=== PATIENT | female | born 1980 | race Caucasian/White ===

== ENCOUNTER 2021-02-20 23:22 | Emergency (ER) | payer BC ==
[2021-02-20] MEDS ORDERED: DECADRON 10MG INJ. IV ONE (23:44)
[2021-02-20] MEDS ORDERED: HYDROCODONE-ACETAMIN 2.5-108/5 ML SOLUTION PO STA (23:44)
[2021-02-20] MEDS ORDERED: DECADRON 10MG INJ. ONE (23:54)
[2021-02-20] MEDS ORDERED: HYDROCODONE-ACETAMIN 2.5-108/5 ML SOLUTION ONE (23:55)
[2021-02-21 00:19] LABS: Absolute Neutrophil Ct (ANC) 1.08 (1.4-6.9); BASOPHIL % 0.3 % (0.0-0.4); Basophil (Absolute #) 0.01 (0-0.4); Eosinophil % 1.8 % (0.00-5.0); Eosinophil (Absolute #) 0.07 (0-0.5); Hematocrit 40.4 % (35-47); Hemoglobin 13.8 gm/dl (12.0-16.0); Lymphocytes % 57.9 % (24.0-44.0); Mean Cell Volume 90.2 fl (78-100); Mean Corpuscular Hemoglobin 30.8 pg (26-32); Mean Corpuscular Hgb Concent. 34.2 g/dl (32-36); Mean Platelet Volume 11.2 fl (7.5-11.0); Monocyte (Absolute #) 0.44 (0.0-1.3); Monocytes % 11.6 % (0.0-12.0); Neutrophil % 28.4 % (36.0-66.0); Platelet Count 131 K/mm3 (150-450); Red Blood Count 4.48 M/mm3 (4.1-5.4); Red Cell Distribution Width 11.7 % (11.5-14.0); White Blood Count 3.8 K/mm3 (4.0-10.5)
--- NOTE | 2021-02-21 00:21 | ERPHSYRPT ---
- History of Present Illness Time Seen by Provider: 02/20/21 23:25 Source: patient Exam Limitations: no limitations Patient Subjective Stated Complaint: pt states she has covid and has had increased body aches, tiredness, cough and has some shortness of breath at times. Triage Nursing Assessment: pt alert and oriented, answers questions approp. pt ambulates into room with steady gait noted. respirations nonlabored. lungs cta. frequent hacking cough noted. skin warm and dry. Physician History: 40 years old fairly healthy female positive for COVID-19 almost a week ago with 10 days history of cough congestion, body aches presented in the ER with increasing shortness of breath and coughing spells with difficulty taking deep breath since yesterday. Patient reports she is coughing nonstop since evening and hurts all over. Off-and-on fever with a T-max of 102 couple of days ago. Feeling weak fatigued tired and lack of energy to do her routine activities. Timing/Duration: day(s) (10), gradual onset, worse Activities at Onset: rest Severity of Dyspnea-Max: moderate Severity of Dyspnea-Current: moderate Possible Cause: illness exposure Modifying Factors: Improves With: rest. Worsens With: activity, coughing, deep breath, exertion Associated Symptoms: cough, chest pain/discomfort, fever, chills, heaviness, painful breathing, productive cough, tightness Allergies/Adverse Reactions: Sulfa (Sulfonamide Antibiotics) Allergy (Intermediate, Verified 02/21/21 00:14) Hives Hx Tetanus, Diphtheria Vaccination/Date Given: No Hx Influenza Vaccination/Date Given: No Hx Pneumococcal Vaccination/Date Given: No Immunizations Up to Date: No Travel Risk - International Travel Have you traveled outside of the country in past 3 weeks: No - Coronavirus Screening Are you exhibiting any of the following symptoms?: Yes Symptoms: Fever, Cough: New Onset, Shortness of Breath, Headaches/Body Aches/Fatigue - Vaccine Status Have you recieved a Covid-19 vaccination: No - Review of Systems Constitutional: Fever, Chills, Fatigue, Weakness Eyes: No Symptoms Ears, Nose, & Throat: Nose Congestion Respiratory: Cough, Dyspnea, Dyspnea on Exertion (ESPINOSA), Wheezing Cardiac: Chest Pain Abdominal/Gastrointestinal: Nausea Genitourinary Symptoms: No Symptoms Musculoskeletal: Myalgias Skin: No Symptoms Neurological: Headache Psychological: No Symptoms Endocrine: No Symptoms Hematologic/Lymphatic: No Symptoms Immunological/Allergic: No Symptoms - Past Medical History Pertinent Past Medical History: No - Past Surgical History Past Surgical History: Yes Other Surgical History: uterine ablation - Social History Smoking Status: Never smoker Exposure to second hand smoke: No Drug Use: none Patient Lives Alone: No - Female History Hx Last Menstrual Period: uterine ablation Hx Now: No - Nursing Vital Signs Nursing Vital Signs: Initial Vital Signs Temperature 97.7 F 02/20/21 23:23 Pulse Rate 91 H 02/20/21 23:23 Respiratory Rate 18 02/20/21 23:23 Blood Pressure 164/104 02/20/21 23:23 O2 Sat by Pulse Oximetry 99 02/20/21 23:23 Pain Scale Pain Intensity 3 - Physical Exam General Appearance: no apparent distress, alert Eye Exam: PERRL/EOMI, eyes nml inspection Ears, Nose, Throat Exam: hearing grossly normal, nasal congestion, pharyngeal erythema Neck Exam: normal inspection, non-tender, supple, full range of motion Respiratory Exam: normal breath sounds, wheezing Cardiovascular/Chest Exam: normal heart sounds, regular rate/rhythm Abdominal/Gastrointestinal Exam: soft, normal bowel sounds, No tenderness Extremity Exam: non-tender, normal range of motion, normal inspection Neurologic Exam: alert, oriented x 3, cooperative Skin Exam: normal color SpO2 Interpretation: normal SpO2: 99 O2 Delivery: Room Air Ordered Tests: Medication Summary Discontinued Medications Generic Name Dose Route Start Last Admin Trade Name Freq PRN Reason Stop Dose Admin Hydrocodone Bitart/Acetaminophen 10 ml 02/20/21 23:44 02/20/21 23:59 Hydrocodone-Acetamin 2.5-108/5 Ml Solution PO 02/20/21 23:45 10 ml STAT STA Administration Hydrocodone Bitart/Acetaminophen Confirm 02/20/21 23:55 Hydrocodone-Acetamin 2.5-108/5 Ml Solution Administered 02/20/21 23:56 Dose 10 ml .ROUTE .STK-MED ONE Dexamethasone Sodium Phosphate 6 mg 02/20/21 23:44 02/20/21 23:59 Decadron 10mg Inj. IV 02/20/21 23:45 6 mg STAT ONE Administration Dexamethasone Sodium Phosphate Confirm 02/20/21 23:54 Decadron 10mg Inj. Administered 02/20/21 23:55 Dose 10 mg .ROUTE .STK-MED ONE Levofloxacin 750 mg 02/21/21 00:51 02/21/21 01:04 Levofloxacin 250mg Tablet PO 02/21/21 00:52 750 mg STAT ONE Administration Levofloxacin Confirm 02/21/21 01:03 Levofloxacin 250mg Tablet Administered 02/21/21 01:04 Dose 750 mg .ROUTE .[facility] ONE Lab/Rad Data: Laboratory Result Diagrams 02/20/21 23:48 02/20/21 23:48 Laboratory Results 02/21/21 02/20/21 02/20/21 Range/Units 00:32 23:52 23:48 WBC (4.0-10.5) K/mm3 RBC (4.1-5.4) M/mm3 Hgb (12.0-16.0) gm/dl Hct (35-47) % MCV (78-100) fl MCH (26-32) pg MCHC (32-36) g/dl RDW (11.5-14.0) % Plt Count (150-450) K/mm3 MPV (7.5-11.0) fl Gran % (36.0-66.0) % Eos # (Auto) (0-0.5) Absolute Lymphs (auto) (1.0-4.6) Absolute Monos (auto) (0.0-1.3) Lymphocytes % (24.0-44.0) % Monocytes % (0.0-12.0) % Eosinophils % (0.00-5.0) % Basophils % (0.0-0.4) % Absolute Granulocytes (1.4-6.9) Basophils # (0-0.4) D-Dimer (215-500) ng/mL Sodium (137-145) mmol/L Potassium (3.5-5.1) mmol/L Chloride (98-107) mmol/L Carbon Dioxide (22-30) mmol/L Anion Gap (5-15) MEQ/L BUN (7-17) mg/dL Creatinine (0.52-1.04) mg/dL Estimated GFR ML/MIN Glucose (74-106) mg/dL Lactic Acid 1.3 (0.4-2.0) Calcium (8.4-10.2) mg/dL Magnesium (1.6-2.3) mg/dL Total Bilirubin (0.2-1.3) mg/dL AST (14-36) U/L ALT (0-35) U/L Alkaline Phosphatase (38-126) U/L Troponin I < 0.012 (0.000-0.034) ng/mL NT-Pro-B Natriuret Pep (0-450) pg/mL Serum Total Protein (6.3-8.2) g/dL Albumin (3.5-5.0) g/dL Urine Color YELLOW (YELLOW) Urine Appearance SLIGHTLY CLOUDY (CLEAR) Urine pH 7.0 (5-6) Ur Specific [place] 1.005 (1.005-1.025) Urine Protein NEGATIVE (Negative) Urine Ketones NEGATIVE (NEGATIVE) Urine Blood SMALL (0-5) [place]/ul Urine Nitrite NEGATIVE (NEGATIVE) Urine Bilirubin NEGATIVE (NEGATIVE) Urine Urobilinogen NEGATIVE (0-1) mg/dL Ur Leukocyte Esterase TRACE (NEGATIVE) Urine WBC (Auto) 3-5 (0-5) /HPF Urine RBC (Auto) 0-2 (0-2) /HPF U Epithel Cells (Auto) FEW (FEW) /HPF Urine Bacteria (Auto) PACKED (NEGATIVE) /HPF Urine Mucus (Auto) SLIGHT (NEGATIVE) /HPF Urine Culture Reflexed YES (NO) Urine Glucose NEGATIVE (NEGATIVE) mg/dL 02/20/21 02/20/21 02/20/21 Range/Units 23:48 23:48 23:48 WBC 3.8 L (4.0-10.5) K/mm3 RBC 4.48 (4.1-5.4) M/mm3 Hgb 13.8 (12.0-16.0) gm/dl Hct 40.4 (35-47) % MCV 90.2 (78-100) fl MCH 30.8 (26-32) pg MCHC 34.2 (32-36) g/dl RDW 11.7 (11.5-14.0) % Plt Count 131 L (150-450) K/mm3 MPV 11.2 H (7.5-11.0) fl Gran % 28.4 L (36.0-66.0) % Eos # (Auto) 0.07 (0-0.5) Absolute Lymphs (auto) 2.20 (1.0-4.6) Absolute Monos (auto) 0.44 (0.0-1.3) Lymphocytes % 57.9 H (24.0-44.0) % Monocytes % 11.6 (0.0-12.0) % Eosinophils % 1.8 (0.00-5.0) % Basophils % 0.3 (0.0-0.4) % Absolute Granulocytes 1.08 L (1.4-6.9) Basophils # 0.01 (0-0.4) D-Dimer < 215 L (215-500) ng/mL Sodium 137 (137-145) mmol/L Potassium 3.5 (3.5-5.1) mmol/L Chloride 104 (98-107) mmol/L Carbon Dioxide 24 (22-30) mmol/L Anion Gap 13.4 (5-15) MEQ/L BUN 10 (7-17) mg/dL Creatinine 0.69 (0.52-1.04) mg/dL Estimated GFR > 60.0 ML/MIN Glucose 107 H (74-106) mg/dL Lactic Acid (0.4-2.0) Calcium 8.9 (8.4-10.2) mg/dL Magnesium 1.9 (1.6-2.3) mg/dL Total Bilirubin 0.30 (0.2-1.3) mg/dL AST 30 (14-36) U/L ALT 25 (0-35) U/L Alkaline Phosphatase 50 (38-126) U/L Troponin I (0.000-0.034) ng/mL NT-Pro-B Natriuret Pep 91.7 (0-450) pg/mL Serum Total Protein 7.1 (6.3-8.2) g/dL Albumin 4.3 (3.5-5.0) g/dL Urine Color (YELLOW) Urine Appearance (CLEAR) Urine pH (5-6) Ur Specific [place] (1.005-1.025) Urine Protein (Negative) Urine Ketones (NEGATIVE) Urine Blood (0-5) [place]/ul Urine Nitrite (NEGATIVE) Urine Bilirubin (NEGATIVE) Urine Urobilinogen (0-1) mg/dL Ur Leukocyte Esterase (NEGATIVE) Urine WBC (Auto) (0-5) /HPF Urine RBC (Auto) (0-2) /HPF U Epithel Cells (Auto) (FEW) /HPF Urine Bacteria (Auto) (NEGATIVE) /HPF Urine Mucus (Auto) (NEGATIVE) /HPF Urine Culture Reflexed (NO) Urine Glucose (NEGATIVE) mg/dL - Progress Progress: improved Air Movement: good Progress Note: 02/21/21 00:57 She is given liquid hydrocodone along with Decadron, reevaluation feeling better. Still have cough. Chest x-ray did not show definitive infiltrative process. CBC consistent with Covid and unremarkable chemistries including D- dimers. I would give her a dose of Levaquin as she is still having off-and-on fever for the last 10 days. She is maintaining oxygen saturation well above 97% on room air and is not in any distress, do not think she needs supplemental oxygen and needs to be hospitalized.. Discussed signs symptoms of worsening needing return to ER which she seems understanding. Stable for discharge. Blood Culture(s) Obtained: Yes Antibiotics given: Yes Counseled pt/family regarding: lab results, diagnosis, need for follow-up, rad results - Departure Departure Disposition: Home Clinical Impression: COVID-19 virus infection Acute bronchitis Qualifiers: Bronchitis organism: unspecified organism Qualified Code(s): J20.9 - Acute bronchitis, unspecified Condition: Stable Critical Care Time: No Referrals: [facility] [Primary Care Provider] - Follow Up with PCP/3 days Instructions: Cough, Adult (DC), Coronavirus Disease 2019 (COVID-19) (DC) Additional Instructions: Take Tylenol as needed for fever greater than 100.4 and body aches. Follow-up with primary care for reevaluation. Return to ER for worsening cough or shortness of breath/persistent fever chills etc. Prescriptions: Dexamethasone [Decadron] 6 mg PO DAILY #5 tablet Hydrocodone/Acetaminophen [Hydrocodone-Acetamin 2.5-108/5 ml Solution] 10 ml PO Q6H 5 Days #120 ml MDD 4 Levofloxacin [Levaquin 500 MG Tablet] 500 mg PO DAILY #7 tablet Albuterol 8 gm Mdi Hfa [Ventolin Hfa MDI] 8 gm IH Q4H #1 inh
[2021-02-21 00:42] LABS: ALBUMIN 4.3 g/dL (3.5-5.0); ALKALINE PHOSPHATASE 50 U/L (38-126); ANION GAP 13.4 MEQ/L (5-15); BLOOD UREA NITROGEN 10 mg/dL (7-17); CHLORIDE 104 mmol/L (98-107); Calcium 8.9 mg/dL (8.4-10.2); Carbon Dioxide 24 mmol/L (22-30); Creatinine 1 0.69 mg/dL (0.52-1.04); EST GLOMERULAR FILTRATION RATE > 60.0 ML/MIN; Glucose 107 mg/dL (74-106); MAGNESIUM 1.9 mg/dL (1.6-2.3); NT PRO BNP 91.7 pg/mL (0-450); Potassium 3.5 mmol/L (3.5-5.1); SGOT/AST 30 U/L (14-36); SGPT/ALT 25 U/L (0-35); SODIUM 137 mmol/L (137-145); Total Protein 7.1 g/dL (6.3-8.2)
[2021-02-21 00:50] LABS: Appearance SLIGHTLY CLOUDY (CLEAR); Bacteria PACKED /HPF (NEGATIVE); Bilirubin NEGATIVE (NEGATIVE); Blood SMALL Ery/ul (0-5); Epithelial Cells FEW /HPF (FEW); Glucose NEGATIVE (NEGATIVE); Ketones NEGATIVE (NEGATIVE); Leukocyte Esterase TRACE (NEGATIVE); Mucus SLIGHT /HPF (NEGATIVE); Nitrite NEGATIVE (NEGATIVE); Protein,Urine Dip NEGATIVE (Negative); RBC 0-2 /HPF (0-2); Specific Gravity 1.005 (1.005-1.025); Urobilinogen NEGATIVE mg/dL (0-1)
[2021-02-21] MEDS ORDERED: Levofloxacin 250MG Tablet PO ONE (00:51)
[2021-02-21] MEDS ORDERED: Levofloxacin 250MG Tablet ONE (01:03)
[2021-02-21 01:36] VITALS: BP 137/91; PULSE 74
--- NOTE | 2021-02-21 06:17 | XRAY ---
Indication: Pneumonia. Positive covid 19. Comparison: None Portable chest demonstrates normal heart, lungs, and bony thorax.
[2021-02-23 07:59] VITALS: O2SAT 99
== END 2021-02-21 01:32 | disposition home or self-care (01) ==
LOC: ED 23:22
DX: J20.9 Acute bronchitis, unspecified (principal)
CPT/HCPCS: 36415; 71045; 80053; 81001; 83605; 83735; 83880; 84484; 85025; 85379; 87040; 87086; 96374; 99284; J1100; A9270-GY